=== PATIENT | male | born 1975 | race Caucasian/White ===

== ENCOUNTER → 2016-06-26 | Outpatient (REF) | payer BC ==
[2016-06-26 13:52] LABS: ALBUMIN 4.1 GM/DL (3.2-5.2); ALBUMIN/GLOBULIN RATIO 1.41 (1.00-1.93); ALKALINE PHOSPHATASE 71 U/L (45-117); ALT/SGPT 24 U/L (12-78); ANION GAP 8 MEQ/L (8-16); AST/SGOT 9 U/L (15-37); BILIRUBIN,TOTAL 0.7 MG/DL (0.2-1.0); BLOOD UREA NITROGEN 10 MG/DL (7-18); CALCIUM LEVEL 8.4 MG/DL (8.5-10.1); CARBON DIOXIDE LEVEL 28 MEQ/L (21-32); CHLORIDE LEVEL 104 MEQ/L (98-107); CHOLESTEROL LEVEL 226 MG/DL (<200); GLOMERULAR FILTRATION RATE > 60.0 (>60); GLUCOSE, FASTING 97 MG/DL (70-105); POTASSIUM SERUM 4.2 MEQ/L (3.5-5.1); SODIUM LEVEL 140 MEQ/L (136-145); TRIGLYCERIDES LEVEL 244 MG/DL (<150)
== END ==
LOC: M SFHCADAM 07:48
PROVIDERS: ATTEND Family Medicine
DX: E66.9 Obesity, unspecified (principal); Z11.4 Encounter for screening for human immunodeficiency virus [HIV]; Z86.39 Personal history of other endocrine, nutritional and metabolic disease

== ENCOUNTER → 2017-06-12 | Outpatient (CLI) | payer BC | LOC: M SLEEP HO 14:04 | DX: G47.30 Sleep apnea, unspecified (principal) | CPT/HCPCS: G0399 ==

== ENCOUNTER 2018-09-18 22:39 | Emergency (ER) | payer BC ==
[~2018-09-18] VITALS: Ht 182.9 cm; Wt 154.6 kg
[2018-09-18 22:40] VITALS: BP 158/99
[2018-09-18] MEDS ORDERED: LISI20TA18 (22:50)
[2018-09-18] MEDS ORDERED: IBUP-1022 PO (22:50)
[2018-09-19] MEDS ORDERED: AUGM875T28 PO (01:23)
[2018-09-19] MEDS ORDERED: KETOROLAC TROMETHAMINE 10 MG TAB PO ONE (01:30)
== END 2018-09-19 01:31 | disposition home or self-care (01) ==
LOC: M ED 22:39
DX: L05.01 Pilonidal cyst with abscess (principal); I10 Essential (primary) hypertension; Z79.899 Other long term (current) drug therapy

== ENCOUNTER → 2022-12-18 | Outpatient (REF) | payer BC ==
[~2022-12-18] MED LIST: AUGM875T28 PO; IBUP-1022 PO; LISI20TA35
== END ==
LOC: M LAB REF 16:14
PROVIDERS: ATTEND Internal Medicine
DX: N39.0 Urinary tract infection, site not specified (principal)